=== PATIENT | female | born 1985 | race Caucasian/White ===

== ENCOUNTER 2020-02-26 01:38 | Emergency (ER) | payer BC ==
[~2020-02-26] VITALS: Ht 160 cm; Wt 133.8 kg
[2020-02-26 02:13] LABS: CALCIUM 7.9 mg/dL (8.5-10.1); POTASSIUM 3.5 mmol/L (3.5-5.1)
[2020-02-26 02:15] LABS: APTT 28.9 Seconds (25.0-31.3); PROTIME 10.2 Seconds (9.20-11.50)
[2020-02-26 02:16] LABS: ABSOLUTE BASOPHILS 0.1 thou/uL (0.0-0.2); ABSOLUTE EOSINOPHILS 0.2 thou/uL (0.0-0.7); ABSOLUTE LYMPHOCYTES 3.2 thou/uL (0.8-5.3); ABSOLUTE MONOCYTES 0.7 thou/uL (0.0-1.2); ABSOLUTE NEUTROPHILS 9.4 thou/uL (1.6-8.1); BASOPHILS 0.5 %; EOSINOPHILS 1.1 %; HEMATOCRIT 41.5 % (37.0-47.0); LYMPHOCYTES 23.8 %; MCH 26.7 pg (26.0-34.0); MCHC 33.7 g/dL (28.0-37.0); MCV 79.4 fL (80.0-100.0); MONOCYTES 5.3 %; MPV 8.1 fl. (7.2-11.1); NUCLEATED RBCS 0 /100WBC; PLATELET COUNT* 351 thou/uL (150-400); POLYS 69.3 %; RBC 5.23 mil/uL (4.20-5.00); RDW-CV 15.3 % (10.5-14.5); WBC 13.6 thou/uL (4.0-11.0)
[2020-02-26 02:18] LABS: ALBUMIN 3.7 g/dL (3.4-5.0); TOTAL BILIRUBIN 0.5 mg/dL (<0.1-1.0); TOTAL PROTEIN 7.8 g/dL (6.4-8.2)
[2020-02-26] MEDS ORDERED: AMITRIPTYLINE H25 M2 PO (03:31)
[2020-02-26] MEDS ORDERED: HYDROXYZINE PAM25 M1 PO (03:31)
[2020-02-26 03:59] VITALS: BP 132/78
--- NOTE | 2020-02-26 13:08 | EKG ---
[place] [address] ELECTROCARDIOGRAM REPORT Name: EMILY MENDOZAIA Room: [facility]#: [id number] Admission: 02/26/20 Attend Phys: Discharge: 02/26/20 Date of : 83 Date of Service: 02/26/20 0143 Report #: [id number] THIS REPORT FOR: //name// [facility] ED Test Date: 2020-02-26 Test Time: 01:43:24 Pat Name: LENKA MENDOZA Department: Room: Gender: [place]: : 1985 Requested By: Madeleine Evans Order Number: [id number] MD: Damian Yap Measurements Intervals [place] Rate: 90 P: 55 [place]: 135 QRS: 40 QRSD: 82 T: 30 QT: 363 QTc: 444 Interpretive Statements Sinus rhythm Baseline wander in lead(s) V3,V5,V6 No previous ECG available for comparison Electronically Signed On 02-26-2020 13:08:52 CDT by Damian Yap [email or web address] <ELECTRONICALLY SIGNED> By: Damian Yap MD, [facility] 02/26/20 1308 0143 0143 Damian Yap MD, [facility] /EPI
== END 2020-02-26 04:00 | disposition home or self-care (01) ==
LOC: M.ERS 01:38
PROVIDERS: Personal Emergency Response Attendant
DX: F41.9 Anxiety disorder, unspecified (principal); Z90.711 Acquired absence of uterus with remaining cervical stump